=== PATIENT | female | born 2000 | race Two or more races ===

== ENCOUNTER 2023-07-24 10:26 | Inpatient (IN) | payer OTHER ==
[~2023-07-24] VITALS: Ht 170.2 cm; Wt 93.0 kg
[~2023-07-24 10:26] MED LIST: PRENATAL CAPLE1 EAC1 PO
[2023-07-24 11:49] LABS: URINE APPEARANCE Clear; URINE BILIRRUBIN Negative (NEGATIVE); URINE BLOOD Small; URINE COLOR Dark Yellow; URINE GLUCOSE Negative (NEGATIVE); URINE LEUKOCYTE Negative; URINE NITRATE Negative; URINE PROTEIN Negative (NEGATIVE)
[2023-07-24 11:52] LABS: URINE BACTERIA 304.8 uL (0.0-1933); URINE EPITHELIAL CELLS 36.6 uL (0.0-38.8); URINE RBC 32.9 uL (0.0-20.8); URINE WBC 7.5 uL (0.0-23.2)
[2023-07-24 12:13] LABS: HEMATOCRIT 40.8 % (36.0-45.00); HEMOGLOBIN 13.9 g/dL (12.0-15.00); MEAN CELL VOLUME 88.2 fL (80.00-100.00); MEAN CORPUSCULAR HEMOGLOBIN 30.1 pg (27.00-32.0); MEAN CORPUSCULAR HGB CONC 34.1 g/dl (32.0-36.0); PLATELET COUNT 179 K/uL (150-450); RED BLOOD COUNT 4.63 M/uL (4.00-6.00); RED CELL DISTRIBUTION WIDTH 13.6 % (11.5-14.5)
[2023-07-24 12:29] LABS: INR < 0.93; PARTIAL THROMBOPLASTIN TIME 28.8 SECONDS (22.0-34.0); PROTHROMBIN TIME 9.8 SECONDS (9.0-11.5)
[2023-07-24 19:05] LABS: ABG PH 7.341 (7.35-7.45); ABG pCO2 45.3 mmHg (35-45); BASE EXCESS -2.1 mmol/l; BICARBONATE 23.9 mmol/l (23-25); Tco2 25.3 mmol/l
[2023-07-24 19:44] LABS: SaO2 42.4 %
[2023-07-24 19:45] LABS: o2 21 %
== END 2023-07-27 13:05 | disposition home or self-care (01) | DRG 785 ==
LOC: LDR 10:26 → OB/GYN 10:26
PROVIDERS: ADMIT Obstetrics & Gynecology Obstetrics; ATTEND Obstetrics & Gynecology Obstetrics
PROC: 0UB70ZZ Excision of Bilateral Fallopian Tubes, Open Approach (ICD-10-PCS; 2023-07-24)
PROC: 4A1HXCZ Monitoring of Products of Conception, Cardiac Rate, External Approach (ICD-10-PCS; 2023-07-24)
PROC: 10D00Z1 Extraction of Products of Conception, Low, Open Approach (ICD-10-PCS; principal; 2023-07-24 14:45)
DX: O34.211 Maternal care for low transverse scar from previous cesarean delivery (principal); Z3A.38 38 weeks gestation of pregnancy; Z37.0 Single live birth; Z20.822 Contact with and (suspected) exposure to COVID-19; Z30.2 Encounter for sterilization